=== PATIENT | female | born 1995 | race Caucasian/White ===

== ENCOUNTER 2019-05-31 11:00 | Outpatient (CLI) | payer OTHER | END 2019-05-31 12:10 | disposition home or self-care (01) | LOC: PRENATAL 11:00 | DX: O99.89 Other specified diseases and conditions complicating pregnancy, childbirth and the puerperium (principal); O09.91 Supervision of high risk pregnancy, unspecified, first trimester; O35.3XX0 Maternal care for (suspected) damage to fetus from viral disease in mother, not applicable or unspecified ==